=== PATIENT | male | born 1975 | race Caucasian/White ===

== ENCOUNTER 2024-12-24 16:09 | Emergency (ER) | payer OTHER, SELFPAY ==
[2024-12-24 16:17] VITALS: BP 113/89
--- NOTE | 2024-12-24 18:27 | ED.GENMED ---
History of Present Illness
General
Chief Complaint: Musculo-Skeletal Complaint
Source: patient
Time Seen by Provider: 12/24/24 17:59
History of Present Illness
History of Present Illness:
49-year-old male with no significant past medical history presents to the emergency department for evaluation of right-sided occipital/cervical spine pain that radiates towards the right shoulder and arm, worse with movement of the head. Patient
states he took some Tylenol and Advil with minimal relief. Symptoms seem to worsen slightly which is why he presented to the ER today. Denies any traumatic injuries and does not know of any exacerbating factors. Denies any headache, visual
disturbance, focal weakness or numbness, chest pain or shortness of breath or any other concerns.
Past History
Past History
ED Past Medical History: None
ED Past Surgical History: Orthopedic
Social History
Tobacco: Non-smoker
Alcohol: None
Drug: None
Personal:
Living: with family
Review of Systems
Review of Systems
All Other Systems: ROS reviewed and negative except as documented in HPI and ROS
Phy Exam
Physical Exam
Physical Exam:
GENERAL: Alert , in no apparent distress at rest but does appear uncomfortable with any movement
HEAD: Normocephalic atraumatic
EYE: conjunctiva clear pupils 4 mm bilateral
NECK: Supple, no significant adenopathy. reproducible tenderness within the occipital region extending into the right paracervical region, trapezius distribution and shoulder
ENT: o/p clr, mmm.
CARDIAC: Regular rate and rhythm
LUNGS: Clear breath sounds bilaterally, no acute respiratory distress, no wheezes/rales/rhonchi
NEUROLOGICAL: Alert and oriented
SKIN: Warm and dry, skin intact.
MUSCULOSKELETAL: well perfused. moves all extremities, sensation grossly intact light touch
PSYCH: Normal and appropriate interaction.
Scores
Heart Failure Risk
Heart Failure Risk Score: Not Applicable
Heart Score for Chest Pain Patients
STEMI patient?: Not applicable
Withdrawal Assessment of Alcohol
Withdrawal Assessment Completed?: Not applicable
Course
Vital Signs
Initial and Last Documented VS:
Initial Vital Signs
Temp Pulse Resp BP Pulse Ox
98.7 F 74 20 113/89 97
12/24/24 16:17 12/24/24 16:17 12/24/24 16:17 12/24/24 16:17 12/24/24 16:17
Last Documented Vital Signs
Temp Pulse Resp BP Pulse Ox
98.7 F 74 20 123/83 97
12/24/24 16:17 12/24/24 16:17 12/24/24 16:17 12/24/24 18:39 12/24/24 18:28
MDM/Problems Addressed
Differential Diagnosis Includes:
Neck strain
Torticollis
Spinal stenosis
Disc herniation
Nerve impingement
I do not have concern for vascular etiology
Atypical ACS considered however much less likely given lack of risk factors
MDM/Problems Addressed:
49-year-old male presenting to the emergency department for evaluation of right-sided lateral neck pain. Pain reproducible with head/neck movement. Reproducible on exam as well. No neurologic findings, no symptoms to suggest vascular etiology. I
did offer EKG however patient declines. I did also offer imaging of the cervical spine the patient was not interested in x-ray imaging. Patient okay with getting medications sent to pharmacy for pain control. I encouraged close follow-up with
primary care provider. Return precautions discussed. Stable for discharge otherwise
*Pulse Oximetry
SaO2: 97
Oxygen Mode of Delivery: Room air
Patient hypoxic: no
*Critical Care Note
Total Time (30-74mins, 75-104mins- exclusive of procedures): Not Applicable
ED Attending Note
-
Portions of this chart may have been created with voice recognition software.� Occasional wrong word or��sound alike� substitutions may have occurred due to the inherent limitations of voice recognition software.
Discharge Plan
Departure
Patient Disposition: Home (Routine Discharge)
Date of Disposition: 12/24/24
Time of Disposition: 18:27
Patient with high blood pressure during this ER visit?: No
Discharge Problem:
Cervicalgia
Instructions: Neck pain - ED discharge instructions
Prescriptions:
New
methylprednisolone [Medrol (Marek)] 4 mg tablets,dose pack
4 mg PO DIRECTED Qty: 21 0RF
lidocaine [Lidoderm] 5 % adhesive patch,medicated
1 patch topical DAILY Qty: 30 0RF
diazepam [Valium] 5 mg tablet
5 mg PO BID PRN (Reason: muscle spasm) Qty: 10 0RF
Interventions
Interventions:
*Risk Screen - Suicide Last Done: 12/24/24 16:17
*General Assessment Last Done: 12/24/24 16:17
*Neglect/Abuse Screening Last Done: 12/24/24 16:17
*ED- Fall Risk Assessment Last Done: 12/24/24 18:52
*ED COVID-19 Vaccine History Last Done: 12/24/24 18:52
*Nursing Disposition Last Done: 12/24/24 18:58
ED-Musculoskeletal Assessment Last Done: 12/24/24 18:56
Discharge Date and Time
Discharge Date/Time: 12/24/24 18:59
Print Language: ESTONIAN
[2024-12-24 18:39] VITALS: BP 123/83
== END 2024-12-24 18:59 | disposition home or self-care (01) ==
LOC: EMR 16:09
PROVIDERS: EMERGENCY PHYSICIAN Emergency Medicine
DX: M54.2 Cervicalgia (principal)
CPT/HCPCS: 99282